=== PATIENT | male | born 1995 | race Caucasian/White ===

== ENCOUNTER 2021-02-25 10:48 | Emergency (ER) | payer OTHER ==
[~2021-02-25] VITALS: Ht 188 cm; Wt 135.6 kg
[2021-02-25 10:59] VITALS: BP 159/75
[2021-02-25] MEDS ORDERED: KETOROLAC 30 MG/ML VIAL IVP ONE (12:10)
[2021-02-25] MEDS ORDERED: NACL 0.9% 1,000 ML IV ONE (12:10)
[2021-02-25] MEDS ORDERED: ONDANSETRON 4 MG/2 ML VIAL IVP ONE (12:10)
[2021-02-25 12:51] LABS: BILIRUBIN,URINE NEGATIVE (NEGATIVE); BLOOD, URINE TRACE-I (NEGATIVE); COLOR,URINE YELLOW (YELLOW); LEUKOCYTE ESTERASE ,URINE NEGATIVE (NEGATIVE); NITRITE, URINE NEGATIVE (NEGATIVE); UGLUCOSE NEGATIVE (NEGATIVE)
[2021-02-25 12:52] LABS: BASOPHILS % (AUTO) 0.2 % (0.0-2.0); EOSINOPHILS % (AUTO) 0.5 % (0.0-4.0); HEMATOCRIT 42.3 % (36-52); HEMOGLOBIN 14.9 g/dL (12.0-18.0); LYMPHOCYTES # (AUTO) 1.5 K/uL (2.0-11.5); LYMPHOCYTES % (AUTO) 15.1 % (20.5-51.1); MEAN CORPUSCULAR HEMOGLOBIN 31 pg (27-31); MEAN CORPUSCULAR HGB CONC 35 g/dL (33-37); MEAN CORPUSCULAR VOLUME 88.6 fL (80-94); MONOCYTES # (AUTO) 0.4 K/uL (0.8-1.0); MONOCYTES % (AUTO) 3.7 % (1.7-9.3); NEUTROPHILS # (AUTO) 8.2 K/uL (1.8-7.7); NEUTROPHILS % (AUTO) 80.5 % (42.2-75.2); PLATELET COUNT (AUTO) 281 K/uL (140-450); RED BLOOD CELL COUNT(AUTO) 4.77 MIL/uL (4.20-6.10); RED CELL DISTRIBUTION WIDTH 15.2 % (11.6-13.7); WHITE BLOOD COUNT (AUTO) 10.2 K/uL (4.8-10.8)
[2021-02-25 12:59] LABS: APPEARANCE,URINE CLEAR (CLEAR); RBC,URINE 0-5 /HPF (0-5); WBC,URINE 0-5 /HPF (0-5)
[2021-02-25 13:00] LABS: ALBUMIN 4.3 g/dL (3.4-5.0); ANION GAP 11.8 (8-16); CARBON DIOXIDE 28.9 mmol/L (21-32); CREATININE 0.8 mg/dL (0.6-1.3); POTASSIUM 3.7 mmol/L (3.5-5.1); TOTAL BILIRUBIN 0.6 mg/dL (0.0-1.0)
[2021-02-25] MEDS ORDERED: OMEP20EC11 PO (13:29)
[2021-02-25] MEDS ORDERED: ACET-10509 PO (13:29)
[2021-02-25 13:50] VITALS: BP 152/76
== END 2021-02-25 13:52 | disposition home or self-care (01) ==
LOC: MED 10:48
DX: R10.13 Epigastric pain (principal)
CPT/HCPCS: 36415; 74176; 80053; 81001; 83690; 85025; 96361; 96374; 96375; 99284; J1885; J2405; J7030